=== PATIENT | male | born 1970 | race Caucasian/White ===

== ENCOUNTER → 2018-07-13 | Outpatient (REF) | payer BC | LOC: M LAB REF 17:30 | DX: L90.5 Scar conditions and fibrosis of skin (principal) | CPT/HCPCS: 88304 ==

== ENCOUNTER 2018-12-22 06:01 | Day surgery (SDC) | payer BC ==
[~2018-12-22] VITALS: Ht 175.3 cm; Wt 121.6 kg
[~2018-12-22 06:01] MED LIST: ASPI81TA26 PO; LEVO100T5 PO; VITA100018 PO
[2018-12-22] MEDS ORDERED: ONDANSETRON 4MG/2ML VIAL (J2405) As Ordered ONE (07:00)
[2018-12-22] MEDS ORDERED: PROPOFOL 200 MG/20 ML VIAL As Ordered ONE (07:00)
[2018-12-22] MEDS ORDERED: LR 1,000 ML IV ONE (07:00)
[2018-12-22] MEDS ORDERED: LIDOCAINE 2% INJ 100 MG/5 ML SDV (FOR ANES.) As Ordered ONE (07:00)
[2018-12-22] MEDS ORDERED: fentaNYL 100 MCG/2 ML INJECTION (J3010) As Ordered ONE (07:01)
[2018-12-22] MEDS ORDERED: MIDAZOLAM INJ 2 MG/2 ML VIAL (J2250) As Ordered ONE (07:01)
[2018-12-22] MEDS ORDERED: LIDOCAINE 1% SDV INJ 30 ML VIAL As Ordered ONE (07:11)
[2018-12-22] MEDS ORDERED: BUPIVACAINE HCL 0.25% 30 ML VIAL As Ordered ONE (07:11)
[2018-12-22] MEDS ORDERED: BUPIVACAINE LIPOSOME/PF 1.3% 20ML VIAL (13.3MG/ML)(EXPAREL)(C9290 PER1MG) As Ordered ONE (07:48)
[2018-12-22] MEDS ORDERED: PHENYLephrine HCL 500 MCG/5 ML (100MCG/ML) SYRINGE (J2370) As Ordered ONE (08:00)
[2018-12-22] MEDS ORDERED: ePHEDrine SULFATE 25 MG/5 ML(5MG/ML) SYRINGE As Ordered ONE (08:00)
[2018-12-22] MEDS ORDERED: CHLOROPROCAINE 2 % INJ PRES.FREE 20 ML VIAL (J2400) As Ordered ONE (08:00)
[2018-12-22] MEDS ORDERED: KETOROLAC 30 MG/ML VIAL (J1885) IV PRN (09:00)
[2018-12-22] MEDS ORDERED: NORCO, ANEXSIA 5/325MG TABLET (HYDROcodone/ACETAMINOPHEN) PO PRN ×2 (09:00)
[2018-12-22] MEDS ORDERED: ONDANSETRON 4MG/2ML VIAL (J2405) IV PRN (09:00)
[2018-12-22] MEDS ORDERED: PERCOCET 5MG/325MG TAB PO PRN (09:00)
[2018-12-22] MEDS ORDERED: METOCLOPRAMIDE INJ 10MG/2ML VIAL (J2765) IV PRN (09:00)
[2018-12-22] MEDS ORDERED: LR 1,000 ML IV SCH (09:00)
[2018-12-22] MEDS ORDERED: fentaNYL 100 MCG/2 ML INJECTION (J3010) IV PRN (09:00)
[2018-12-22] MEDS ORDERED: MEPERIDINE INJ 25 MG/ML VIAL (J2175) IV PRN (09:00)
--- NOTE | 2018-12-22 09:15 | ROOPDOC ---
[facility] Report Of Operation Report of Operation DATE OF PROCEDURE: 12/22/18 PREPROCEDURE DIAGNOSES: Chronic pilonidal cyst and sinus tract. POSTPROCEDURE DIAGNOSES: Same. PROCEDURE: Excision of chronic pilonidal cyst and sinus tract, examination under anesthesia. SURGEON: Jethro Orta MD ANESTHESIA: Spinal anesthesia with local (Exparel with 1/4% Marcaine). ESTIMATED BLOOD LOSS: Approximately 10 mL. COMPLICATIONS: None. REMARKS: 48-year-old morbidly obese with a deep gluteal cleft, moderate amount of hair around the gluteal cleft with long-standing drainage deep down on his gluteal cleft in between the coccyx and the anal verge. PROCEDURE NOTE: Sinus tract going towards the coccyx as well as down to the level of the external sphincter. DESCRIPTION OF PROCEDURE: . JETHRO ORTA MD Dec 22, 2018 09:15
[2018-12-22 10:10] VITALS: BP 132/87
== END 2018-12-22 10:22 | disposition home or self-care (01) ==
LOC: M SDC 06:01
PROVIDERS: ATTEND Surgery
DX: L05.01 Pilonidal cyst with abscess (principal); E03.9 Hypothyroidism, unspecified; K21.9 Gastro-esophageal reflux disease without esophagitis; E66.01 Morbid (severe) obesity due to excess calories; Z79.82 Long term (current) use of aspirin; Z79.899 Other long term (current) drug therapy; Z87.891 Personal history of nicotine dependence
CPT/HCPCS: 11771; 87070; 87075; 87076; 87077; 87186; 87205; 88304; C9290; J0690; J2250; J2370; J2400; J2405; J3010

== ENCOUNTER 2018-12-31 18:58 | Emergency (ER) | payer BC ==
[~2018-12-31] VITALS: Ht 172.7 cm; Wt 118.2 kg
[2018-12-31] MEDS ORDERED: COLA100C5 PO (19:10)
--- NOTE | 2018-12-31 21:06 | ECGEPIP ---
Stationary ECG Study [facility] - ED Test Date: 2018-12-31 Pat Name: YUE ALEJANDRE Department: Room: - Gender: M Cellular Biologist: ANGELES : [id number] Requested By: AUSTYN HILLMAN PA-C Order Number: [id number] Reading MD: Opal Galindo Measurements Intervals [place] Rate: 83 P: 44 W[place]: 175 QRS: -13 QRSD: 108 T: 52 QT: 352 QTc: 415 Interpretive Statements SINUS RHYTHM WITH SINUS ARRHYTHMIA MINIMAL VOLTAGE CRITERIA FOR LVH, CONSIDER NORMAL VARIANT NO PRIOR FOR COMPARISON Electronically Signed On 12-31-2018 21:06:05 EDT by Opal Galindo
[2018-12-31 21:31] LABS: BASO % 0.6 % (0.0-1.0); EOS # 0.1 10^3/uL (0.0-0.50); EOS % 2.3 % (0.0-3.0); HEMATOCRIT 45.3 % (42.0-52.0); HEMOGLOBIN 15.4 g/dl (13.5-17.5); LYMPH # 1.6 10^3/uL (1.5-4.5); LYMPH % 29.4 % (24.0-44.0); MEAN CORPUSCULAR HEMOGLOBIN 28.5 pg (27.0-33.0); MEAN CORPUSCULAR VOLUME 83.7 fl (80.0-96.0); MONO # 0.4 10^3/uL (0.0-0.8); MONO % 7.8 % (0.0-5.0); NEUTROPHILS # 3.2 10^3/uL (1.8-7.7); NEUTROPHILS % 59.7 % (36.0-66.0); PLATELET COUNT, AUTOMATED 222 10^3/uL (150-450); RED BLOOD COUNT 5.41 10^6/uL (4.30-6.10); WHITE BLOOD COUNT 5.3 10^3/uL (4.0-10.0)
[2018-12-31 21:39] LABS: VENOUS BASE EXCESS 1.3 (-2.0-2.0); VENOUS HCO3 26.3 MEQ/L (23.0-27.0); VENOUS O2 SATURATION 92.5 % (60.0-80.0); VENOUS PARTIAL PRESSURE CO2 43.2 mmHg (38.0-50.0); VENOUS PARTIAL PRESSURE O2 64.9 mmHg (30.0-50.0); VENOUS PH 7.403 UNITS (7.330-7.430); VENOUS STANDARD HCO3 25.4 MEQ/L; VENOUS TOTAL CO2 27.7 MEQ/L (24.0-28.0)
[2018-12-31 21:56] LABS: OSMOLALITY SERUM 291 MOSM/KG (275-295)
[2018-12-31 22:02] LABS: HEMOGLOBIN A1c 5.4 %
[2018-12-31 22:11] LABS: ACETONE/KETONE 0.76 MG/DL (<2.81); ALBUMIN 3.9 GM/DL (3.2-5.2); ALT/SGPT 44 U/L (12-78); BILIRUBIN,DIRECT < 0.1 MG/DL (0.0-0.2); BILIRUBIN,TOTAL 0.3 MG/DL (0.2-1.0); BLOOD UREA NITROGEN 12 MG/DL (7-18); CALCIUM LEVEL 8.2 MG/DL (8.5-10.1); CARBON DIOXIDE LEVEL 25 MEQ/L (21-32); CHLORIDE LEVEL 107 MEQ/L (98-107); CK-MB VALUE MASS < 1.0 NG/ML (<3.6); CPK CREATINE PHOSPHOKINASE 54 U/L (39-308); CREATININE FOR GFR 0.99 MG/DL (0.70-1.30); GLOMERULAR FILTRATION RATE > 60.0 (>56); GLUCOSE, FASTING 109 MG/DL (70-100); LIPASE 131 U/L (73-393); MAGNESIUM LEVEL 2.1 MG/DL (1.8-2.4); MB/CK RELATIVE INDEX 1.85 (< OR =4); POTASSIUM SERUM 4.2 MEQ/L (3.5-5.1); SODIUM LEVEL 141 MEQ/L (136-145); TOTAL PROTEIN 7.1 GM/DL (6.4-8.2); TROPONIN I < 0.02 NG/ML (< 0.10)
[2018-12-31] MEDS ORDERED: ISOVUE-370 76% 100ML VIAL (Q9967) As Ordered ONE (22:41)
--- NOTE | 2018-12-31 23:51 | REPVR ---
EXAM: CT Abdomen and Pelvis With Contrast EXAM DATE/TIME: 12/31/2018 10:44 PM CLINICAL HISTORY: 48 years old, male; Signs and symptoms; Nausea TECHNIQUE: Imaging protocol: Axial computed tomography images of the abdomen and pelvis with intravenous contrast. Coronal and sagittal reformatted images were created and reviewed. Radiation optimization: All CT scans at this facility use at least one of these dose optimization techniques: automated exposure control; mA and/or kV adjustment per patient size (includes targeted exams where dose is matched to clinical indication); or iterative reconstruction. Contrast material: ISOVUE 370; Contrast volume: 100 ml; Contrast route: IV; COMPARISON: No relevant prior studies available. FINDINGS: LUNG BASES: No infiltrate or effusion. VASCULAR: There is calcification of the aortic valve. No abdominal aortic aneurysm, dissection, or retroperitoneal hematoma. Mild atherosclerosis. PERITONEAL : No free air or free fluid. GI: No hiatal hernia. The stomach contains some fluid, ingested material and gas. The stomach is not sufficiently distended to evaluate wall thickening. Nonspecific fluid-filled loops of small bowel seen within the abdomen and pelvis. No asymmetric small bowel dilation to suggest obstruction. No focal mesenteric inflammatory stranding is seen. Multiple slightly prominent mesenteric lymph nodes are seen. Although nonspecific, mild gastroenteritis with reactive lymph nodes or mild mesenteric adenitis may be possibilities. Scattered fecal material and gas within portions of the colon. No pericolonic inflammatory stranding. The appendix does not appear inflamed. There is diverticulosis but no evidence of acute diverticulitis. Heterogeneous tiny bubbles of gas are noted between the gluteal folds, posterior to the anus with some associated subcutaneous soft tissue swelling measuring approximately 3.4 cm in diameter along the medial aspect right gluteal fold, posterior to the anus. This could represents fecal incontinence with bubbles of gas and fecal material, however perianal cellulitis, injury and/or abscess cannot be excluded. Correlation with clinical exam. HEPATOBILIARY, PANCREAS, SPLEEN: The liver is not enlarged. Hepatic attenuation consistent with fatty infiltration. 11 mm hypodense hepatic lesion within the right lobe, likely a cyst. Partially contracted gallbladder. No calcified gallstones or biliary dilation. No pancreatic inflammation. Splenic diameter is 16.6 cm in maximal dimension. ADRENALS, KIDNEYS, BLADDER, RETROPERITONEAL: Adrenals within normal limits. No hydronephrosis. Symmetric renal enhancement. No perinephric stranding or fluid. No perivesical stranding. Slight heterogeneity of the prostate impressing into the base of the bladder. There is a 3 mm area of nodular enhancement at the base of the bladder which may be due to prostatic hypertrophy, however a bladder mass or prostate mass cannot be excluded by this exam. Clinical correlation and followup is advised. Prostate calcifications noted. MUSCULOSKELETAL: Mild degenerative changes of the spine and within the pelvis noted. Indeterminate 3 cm lucent lesion posterior aspect left iliac bone is of uncertain significance. This may be degenerative. Clinical correlation with risk factors. If indicated, consider nonemergent MRI for further evaluation. IMPRESSION: No free air, free fluid or focal mesenteric inflammation. Gastrointestinal findings as discussed above, to be correlated clinically. 3 mm nodular area of enhancement at the junction of the urinary bladder and prostate to be correlated clinically. Nodular hyperplasia cannot be differentiated from soft tissue mass by this exam. Other findings discussed above. Electronically signed by: Myles Bledsoe On 12/31/2018 23:51:43 PM
[2019-01-01 00:46] VITALS: BP 124/88
--- NOTE | 2019-01-01 07:37 | ED PDOC ---
Post-Departure Follow-Up dr lynn nelson faxed formal report of ct abd/p for fu Andre Berry MD Jan 01, 2019 07:37
== END 2019-01-01 00:48 | disposition home or self-care (01) ==
LOC: M ED 18:58
DX: K56.7 Ileus, unspecified (principal); E03.9 Hypothyroidism, unspecified; Z87.891 Personal history of nicotine dependence; Z79.82 Long term (current) use of aspirin; Z79.899 Other long term (current) drug therapy
CPT/HCPCS: 74177; 80048; 80076; 81001; 82010; 82550; 82553; 82803; 83036; 83690; 83735; 83930; 84484; 85025; 93005; 99284; Q9967

== ENCOUNTER 2019-03-14 07:22 | Emergency (ER) | payer BC ==
[~2019-03-14] VITALS: Ht 175.3 cm; Wt 113.6 kg
[~2019-03-14 07:22] MED LIST changes: +COLA100C5 PO
[2019-03-14] MEDS ORDERED: EMLA CREAM 5GM (LIDOCAINE/PRILOCAINE) TOP ONE (08:30)
[2019-03-14] MEDS ORDERED: LIDOCAINE W/EPINEPHRINE 1% 20ML VIAL SC ONE (08:30)
[2019-03-14 10:16] LABS: C REACTIVE PROTEIN QUANTITATIV 4.74 MG/DL (0.00-0.30)
[2019-03-14 10:48] LABS: HEMATOCRIT 42.6 % (42.0-52.0); HEMOGLOBIN 14.3 g/dl (13.5-17.5); MEAN CORPUSCULAR HEMOGLOBIN 28.5 pg (27.0-33.0); MEAN CORPUSCULAR HGB CONC 33.6 g/dl (32.0-36.5); PLATELET COUNT, AUTOMATED 151 10^3/uL (150-450); RED BLOOD COUNT 5.01 10^6/uL (4.30-6.10); WHITE BLOOD COUNT 6.5 10^3/uL (4.0-10.0)
[2019-03-14 11:05] LABS: ERYTHROCYTE SEDIMENTATION RATE 15 mm/hr (0-20)
[2019-03-14] MEDS ORDERED: KETOROLAC 30 MG/ML VIAL (J1885) IV ONE (12:00)
[2019-03-14 12:31] LABS: BLOOD UREA NITROGEN 12 MG/DL (7-18); CALCIUM LEVEL 8.6 MG/DL (8.5-10.1); CARBON DIOXIDE LEVEL 25 MEQ/L (21-32); CHLORIDE LEVEL 105 MEQ/L (98-107); CREATININE FOR GFR 0.89 MG/DL (0.70-1.30); GLOMERULAR FILTRATION RATE > 60.0 (>56); GLUCOSE, FASTING 97 MG/DL (70-100); POTASSIUM SERUM 5.4 MEQ/L (3.5-5.1); SODIUM LEVEL 137 MEQ/L (136-145)
[2019-03-14] MEDS ORDERED: ISOVUE-370 76% 100ML VIAL (Q9967) As Ordered ONE (12:41)
--- NOTE | 2019-03-14 13:18 | REP ---
Clinical: Abscess. Technique: Axial contrast enhanced images from the lung bases to the pubic symphysis using 100 ml Isovue 370 intravenous contrast material with coronal and sagittal re-formations. Comparison: 12/31/2018. Findings: Lung bases are clear. Visualized heart and pericardium normal. Liver includes 1 cm benign cyst. Spleen, pancreas, gallbladder, by lateral adrenal glands and kidneys are normal. The enteric system is without obstruction or acute inflammatory process. Normal terminal ileum and appendix identified in the right lower quadrant. Few scattered sigmoid diverticula noted without acute diverticulitis. Pelvis demonstrates normal bladder and age appropriate prostate/seminal vesicles. Small fat containing inguinal hernia. No ascites. No free air. No adenopathy. Abdominal aorta without aneurysm. Skin thickening and underlying infiltration to the subcutaneous tissues involving the right gluteal region suggests cellulitis without underlying phlegmon or abscess/fluid collection. Impression: 1. Right gluteal cellulitis without drainable collection/abscess. No acute abdominopelvic pathology appreciated. 2. No ascites, inflammatory stranding, or adenopathy 3. Stable 1 cm benign hepatic cyst. 4. Sigmoid diverticula without acute diverticulitis Electronically Signed by Alberto Sanz MD 03/14/2019 01:09 P
[2019-03-14] MEDS ORDERED: DOXYCYCLINE HYCLATE 100 MG in D5W MINI-BAG PLUS 100 ML IV ONE (13:30)
[2019-03-14] MEDS ORDERED: KETO10TAB PO (14:43)
[2019-03-14] MEDS ORDERED: DOXY100C37 PO (14:43)
[2019-03-14 15:19] VITALS: BP 122/62
== END 2019-03-14 15:30 | disposition home or self-care (01) ==
LOC: EEVIPCON 07:22 → M ED 07:22
DX: L03.317 Cellulitis of buttock (principal); E03.9 Hypothyroidism, unspecified; Z87.891 Personal history of nicotine dependence; Z79.899 Other long term (current) drug therapy; Z79.82 Long term (current) use of aspirin
CPT/HCPCS: 36415; 74177; 80048; 85027; 85652; 86140; 87070; 87077; 87186; 87205; 96374; 96375; 99284; J1885; Q9967

== ENCOUNTER → 2020-12-31 | Outpatient (CLI) | payer BC ==
[~2020-12-31] MED LIST changes: +DOXY100C37 PO; +KETO10TAB PO
== END ==
LOC: M LABSMTC 10:52
PROVIDERS: ATTEND Surgery
DX: Z01.818 Encounter for other preprocedural examination (principal); Z20.828 Contact with and (suspected) exposure to other viral communicable diseases